=== PATIENT | male | born 1990 | race Caucasian/White ===

== ENCOUNTER 2017-09-06 07:39 | Emergency (ER) | payer OTHER ==
[~2017-09-06] VITALS: Ht 185.4 cm; Wt 99.8 kg
[~2017-09-06 07:39] MED LIST: ALBUTEROL2.5 MG/NEB IN; MEDROL 4MG. DOSE4 MG PO; PROVENTIL0.09 MG/AC IH; SERTRALINE 50MG50 MG PO; VENLAFAXINE 337.5 MG PO; XOPENOX 0.0.63 MG/3 IN
--- OUTSIDE RECORDS SUMMARY | 2017-09-06 08:08 | External Medical Summary Rpt | CCD ---
Author Author , DEMETRIUS Organization [employer] Address Unknown Phone .[facility] Support Name Relationship Address Phone GRADY Next Of Kin [address]ARZA [phone] [place] [address] Purpose Continuity of Care Document - 05-17-2013 through 2016 Allergies, Adverse Reactions, Alerts Type Allergy to substance Adverse Reaction to Substance Substance Reaction Severity NO KNOWN ALLERGIES Unknown Unknown Vital Signs 05-17-2013 11:28 Name Value Interpretat Reference Comment ion Range BP 78 mm[Hg] Diastolic BP Systolic 132 mm[Hg] O2% 98 % Respiratory 18 /min Rate Encounters Encounter Start End Date Code Location Performer Type Date Emergency JAIR Ramos (ER) 3 11:09 3 11:31 [facility] Phan Montoya
--- OUTSIDE RECORDS SUMMARY | 2017-09-06 08:08 | External Medical Summary Rpt | CCD ---
Author Author , DEMETRIUS Organization [employer] Address Unknown Phone [email or web address] Immunization Name Date Rout CVX Reac Dose Comm Prov Is Faci e tion ent ider Refu lity Give sed n Td 10-0 9 999 Hist H149 No H149 (agueda 7-20 oric lt), 04 al Info adso rmat rbed ion - Sour ce Unsp ecif ied
--- OUTSIDE RECORDS SUMMARY | 2017-09-06 08:08 | External Medical Summary Rpt ---
Author Author DEMETRIUS Moore, DEMETRIUS Moore Organization [employer] Address Unknown Phone Unavailable
--- OUTSIDE RECORDS SUMMARY | 2017-09-06 08:08 | External Medical Summary Rpt | CCD ---
Author Author [employer] Organization [employer] Address Unknown Phone Unavailable Purpose Continuity of Care Document - through 2016
--- OUTSIDE RECORDS SUMMARY | 2017-09-06 08:08 | External Medical Summary Rpt | CCD ---
Author Author , DEMETRIUS Organization [employer] Address Unknown Phone [email or web address] Immunization Name Date Rout CVX Reac Dose Comm Prov Is Faci e tion ent ider Refu lity Give sed n Td 10-0 9 999 Hist H149 No H149 (agueda 7-20 oric lt), 04 al Info adso rmat rbed ion - Sour ce Unsp ecif ied
--- OUTSIDE RECORDS SUMMARY | 2017-09-06 08:08 | External Medical Summary Rpt | CCD ---
Author Author , DEMETRIUS Organization [employer] Address Unknown Phone [email or web address] Support Name Relationship Address Phone GRADY Next Of Kin [address] GARZA [phone] [place] [address] Purpose Continuity of Care Document - 05-17-2013 [...] JAIR Ramos (ER) 3 11:09 3 11:31 [facility] Phan Montoya
[2017-09-06] MEDS ORDERED: CIPROFLOXACIN H10 ML OP (08:50)
--- NOTE | 2017-09-06 08:51 | Emergency Room Report ---
History of Present Illness Time Seen by MD Campos Presenting Problem in Triage Pt arrived:Walked Presenting Problem:PT REPORTS POSSIBLE FB IN L EYE, STATES THINKS IT HAPPENED YESTERDAY AT WORK Onset of symptoms date/time:09/05/17/ or onset unknown for:MEDICAL HX UNKNOWN Treatment Prior to Arrival: TELLER HEAD Provided by: Sepsis Risk Assessment: Temp: 98.1 B/P: 161/87 MAP: 111 Pulse: 92 Resp: 18 Recent fever? N Clinical Suspician of Infection? N Mental Status: 1 - Regular (Normal Baseline) Sepsis Risk:Low Sepsis Risk Have you (or family members/close friends) recently traveled outside the [place]? N If Yes, where/when: Have you had exposure to infectious disease within the past month? N TB? Other? 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 He felt a foreign body in the high in the left eye yesterday and he washed his eye. He woke up this morning with left eye irritation and foreign body sensation. He came to the emergency room. He denies having pain or visual difficulty. He denies having past medical history or being on medications. Source patient, RN notes reviewed Exam Limitations no limitations ALLERGIES Coded Allergies: No Known Allergies (09/06/17) Home Medications Reported Medications No Known Home Medications History Medical History General CAD? No Angina: No AR: No Hypertension? No Hyperlipidemia? No CHF? No DVT? No PE? No COPD? No Asthma? No Anemia? No GERD? No Gastric ulcers? No GI Bleed? No Hernia? No Thyroid Problems? No Hypothyroidism? No CVA? No Seizures? No Diabetes? No Renal Insuffiency? No End Stage Renal Disease? No UTI? No Stones? No GB Disease: No Nephritic Syndrome? No Asplenia? No Hepatitis? No Sickle Cell Disease? No Arthritis? No Migraines? No Cataracts? No Glaucoma? No MRSA? No HIV? No TB? No Anxiety? No Depression? No Cancer? No More? No Immunization Hx DT/Tetanus Unknown Surgical Hx Previous Surgery?N Social History Smoking Hx Smoker: Never Smoker Tobacco: Yes Type Snuff Alcohol Alcohol: No Review of Systems All Other Systems Reviewed and Negative Constitutional no symptoms reported Eyes see HPI, foreign body sensation ENT no symptoms reported. Respiratory no symptoms reported Cardiovascular no symptoms reported Gastrointestinal no symptoms reported Genitourinary no symptoms reported. Musculoskeletal no symptoms reported Skin no symptoms reported Psychiatric/Neurological no symptoms reported Physical Exam Vital Signs Vital Signs Date Time Temp Pulse Resp B/P Pulse O2 O2 Flow FiO2 Ox Delivery Rate 09/06 0742 98.1 92 18 161/87 99 - WBC >12,000 or <4,000 or 10% bands? 2 or more SIRS Criteria Met? B/P:161/87 MAP:111 Creatinine >2.0? UA output<0.5ml/kg/hr for 2 hrs? Platelet count >100,000? Lactate >2.0mmol/1? INR >1.2 or PTT > than 60 sec? Evidence of Organ Dysfunction? Provider documented clinical suspician of infection? N Sepsis Criteria Count: 1 Sepsis Risk: Low Sepsis Risk General Appearance normal appearance, WD/WN, no apparent distress Eye Exam - left eye corneal abrasion, bilateral eye PERRL, bilateral eye EOMI Comment The patient had a mild eyelid edema. Using tetracaine and fluorescein stain the patient had a 2-3 mm transverse abrasion at 6:00. He did have conjunctival irritation in the L temporal quadrant. Using a Q-tip I did a conjunctival sweep with some dirt-like material removed from the inner canthus. Ear, Nose, Throat hearing grossly normal, normal ENT inspection Neck normal inspection, non-tender, supple, full range of motion Respiratory Status Yes: trachea midline, chest symmetrical, non tender chest. No: respiratory distress. Lung Sounds bilateral: normal breath sounds, lungs clear. 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 No Results/Orders Current Medication Orders Sig/Marino Start time Last Medication Dose Route Stop Time Status Admin Fluorescein Sodium 1 EACH ONCE ONE 09/06 845 DC 09/06 OP 09/06 846 0844 Tetracaine HCl See Dose ONCE ONE 09/06 845 DC 09/06 Insts (1) OP 09/06 846 0844 Miscellaneous 0 .STK-MED ONE 09/06 0749 DC XX Dose Instructions: (1)Tetracaine HCl: DOSE = 1 - 2 DROPS Departure Departure Time of Disposition 0845 Disposition DC Home or Self Care(routine) Clinical Impression Primary Impression: Corneal abrasion, left Secondary Impressions: Acute conjunctivitis, unspecified Condition STABLE Additional Instructions I discussed with the patient the possibility of retained FB, I advised him for a full dilated eye exam today and he verblaized understanding. 1- rest. 2- cold compresses 3- antibiotics 4- toradol eye drops. 5- follow up with Dr Thomas our local eye docotor. Discharge Counseling Counseled pt/family regarding diagnosis, test results, medications/RX, home care, follow up needs Prescriptions Current Visit Scripts CIPROFLOXACIN HCL (Ciprofloxacin Hydrochloride) 5 ML OP Q4 #1 ML ED Critical Care Critical Care No If Critical Care minutes are documented, the time involved in the performance of seperately reportable procedures was not counted toward critical care time documented. I directly delivered medical care to this critically ill and/or injured patient. Timely evaluation and treatment was necessary to address the significant organ system(s) dysfunction present in this patient. at 0837
[2017-09-06 09:00] VITALS: BP 156/92
== END 2017-09-06 09:00 | disposition home or self-care (01) ==
LOC: ER 07:39
DX: S05.02XA Injury of conjunctiva and corneal abrasion without foreign body, left eye, initial encounter (principal); H10.30 Unspecified acute conjunctivitis, unspecified eye; Y93.89 Activity, other specified; Y92.9 Unspecified place or not applicable; Y99.0 Civilian activity done for income or pay